=== PATIENT | female | born 1975 | race Caucasian/White ===

== ENCOUNTER 2018-08-07 16:25 | Emergency (ER) | payer BC, OTHER ==
--- NOTE | 2018-08-07 16:50 | ED ---
Psych HPI - General Stated Complaint: Suicidal thoughts Time Seen by Provider: 08/07/18 16:25 Source: patient, RN notes reviewed - History of Present Illness Initial Comments: Is a 43-year-old female with essentially benign past medical history who states she did initially depressed recently/over last several days she did ask for a LEEP day or in apparently had a go an today. She went to her doctor's office and was voicing suicidal thoughts and ideation including using a gun. He also thought about cutting her wrists. She has no prior history of suicide attempts she currently is on antidepressants. She denies any drugs or alcohol. No other medical issues she does states she's had some weight gain recently she was told she had possibly some thyroid nodules but has never pursued this she also states she had a lot of blood work done in her doctor's office recently that everything appeared to be normal. No other modifying factors she states her is multiple issues for this occurrence today. MD Complaint: suicidal ideation, feels depressed - Related Data Home Medications Medication Instructions Recorded Confirmed FLUoxetine HCL [PROzac] 40 mg PO DAILY 06/24/16 08/07/18 valACYclovir [Valtrex] 500 mg PO DAILY 06/24/16 08/07/18 Dextroamphetamine/Amphetamine 20 mg PO DAILY 08/07/18 08/07/18 [Adderall] Allergies Allergy/AdvReac Type Severity Reaction Status Date / Time morphine Allergy Severe Anaphylaxis Verified 08/07/18 17:08 clarithromycin [From Biaxin] AdvReac Intermediate Nausea & Verified 08/07/18 17: 08 Vomiting & Diarrhea Review of Systems ROS Statement: Those systems with pertinent positive or pertinent negative responses have been documented in the HPI. ROS Other: All systems not noted in ROS Statement are negative. Past Medical History Past Medical History: No Reported History History of Any Multi-Drug Resistant Organisms: None Reported Past Surgical History: No Surgical Hx Reported Past Psychological History: No Psychological Hx Reported Smoking Status: Former smoker Past Alcohol Use History: None Reported Past Drug Use History: None Reported General Exam - General Exam Comments Initial Comments: This is a well-developed well-nourished awake alert oriented 3 female General appearance: alert, in no apparent distress Head exam: Present: atraumatic, normocephalic, normal inspection Eye exam: Present: normal appearance, PERRL, EOMI. Absent: scleral icterus, conjunctival injection, periorbital swelling ENT exam: Present: normal exam, mucous membranes moist Neck exam: Present: normal inspection. Absent: tenderness, meningismus, lymphadenopathy Respiratory exam: Present: normal lung sounds bilaterally. Absent: respiratory distress, wheezes, rales, rhonchi, stridor Cardiovascular Exam: Present: regular rate, normal rhythm, normal heart sounds. Absent: systolic murmur, diastolic murmur, rubs, gallop, clicks GI/Abdominal exam: Present: soft, normal bowel sounds. Absent: distended, tenderness, guarding, rebound, rigid Extremities exam: Present: normal inspection, full ROM, normal capillary refill. Absent: tenderness, pedal edema, joint swelling, calf tenderness Back exam: Present: normal inspection Neurological exam: Present: alert, oriented X3, CN II-XII intact Psychiatric exam: Present: depressed, flat affect, suicidal ideation Skin exam: Present: warm, dry, intact, normal color. Absent: rash Course Vital Signs 08/07/18 16:49 Temperature 98.0 F Pulse Rate 106 H Respiratory 20 Rate Blood Pressure 130/76 O2 Sat by Pulse 96 Oximetry Medical Decision Making - Medical Decision Making The patient was evaluated by psychiatric service he currently is not a risk to herself or anyone else he is amenable to outpatient counseling and treatment. He currently is not suicidal or homicidal. Disposition Clinical Impression: Depression, Adjustment reaction Disposition: HOME SELF-CARE Condition: Good Instructions: Depression (ED) Additional Instructions: Follow-up as per the psychiatric service. Is patient prescribed a controlled substance at d/c from ED?: No Referrals: Onesimo Rahman MD [Primary Care Provider] - 1-2 days
[2018-08-07 16:57] VITALS: TEMP 98
[2018-08-07 19:05] VITALS: BP 130/77; PULSE 100; RESP 18
== END 2018-08-07 19:03 | disposition home or self-care (01) ==
LOC: EC 16:25
DX: F32.9 Major depressive disorder, single episode, unspecified (principal); F43.20 Adjustment disorder, unspecified; Z87.891 Personal history of nicotine dependence; Z79.899 Other long term (current) drug therapy; Z88.1 Allergy status to other antibiotic agents; Z88.5 Allergy status to narcotic agent
CPT/HCPCS: 82075; 99284

== ENCOUNTER → 2019-03-07 | Outpatient (CLI) | payer BC ==
--- NOTE | 2019-03-07 15:48 | US ---
EXAMINATION TYPE: US thyroid st tissue head/neck DATE OF EXAM: 03/07/2019 COMPARISON: NONE CLINICAL HISTORY: E04.1 Thyroid nodule. GLAND SIZE: Right Lobe: 4.8 x 3.0 x 1.1 cm Overall Parenchyma: homogenous Left Lobe: 5.1 x 1.2 x 1.2 cm Overall Parenchyma: homogeneous Isthmus Thickness: 0.1 cm NODULES RIGHT: # of nodules measured on right: 0 LEFT: # of nodules measured on left: 0 ISTHMUS: # of nodules measured in the isthmus: 0 Bilateral neck scanned, no evidence of lymphadenopathy. IMPRESSION: Prominent size of the homogeneous thyroid gland without discrete nodule.
== END | disposition home or self-care (01) ==
LOC: RADUSWWP 14:58
PROVIDERS: ATTEND Family Medicine
DX: E04.1 Nontoxic single thyroid nodule (principal)
CPT/HCPCS: 76536

== ENCOUNTER → 2019-08-20 | Outpatient (CLI) | payer BC, OTHER ==
[2019-08-20 12:02] LABS: HCT 41.8 % (34.0-46.0); HGB 14.3 gm/dL (11.4-16.0); MCH 33.9 pg (25.0-35.0); MCHC 34.2 g/dL (31.0-37.0); MCV 99.1 fL (80.0-100.0); Mean Platelet Volume 6.3; Platelet Count 374 k/uL (150-450); RBC 4.22 m/uL (3.80-5.40); RDW 12.5 % (11.5-15.5); WBC 5.7 k/uL (3.8-10.6)
[2019-08-20 18:57] LABS: Estradiol 227.6 pg/mL; Luteinizing Hormone 6.4 mIU/mL
[2019-08-20 18:59] LABS: DHEA Sulfate 109.6 ug/dL (26.0-430.0)
[2019-08-20 19:01] LABS: Insulin Level 5.4 mIU/mL (3.0-25.0)
[2019-08-20 19:02] LABS: Progesterone <0.2 ng/mL
== END | disposition home or self-care (01) ==
LOC: LABWHC1 10:46
PROVIDERS: ATTEND Surgery
DX: G47.00 Insomnia, unspecified (principal); R53.81 Other malaise
CPT/HCPCS: 36415; 82627; 82670; 83001; 83002; 83525; 84140; 84144; 84402; 84403; 84439; 84443; 84481; 85027

== ENCOUNTER → 2019-12-06 | Outpatient (CLI) | payer BC, OTHER ==
[2019-12-06 16:49] LABS: Estradiol 105.4 pg/mL
== END | disposition home or self-care (01) ==
LOC: LABWHC1 09:22
PROVIDERS: ATTEND Surgery
DX: E34.9 Endocrine disorder, unspecified (principal); R53.81 Other malaise; G47.00 Insomnia, unspecified; R61 Generalized hyperhidrosis; R68.82 Decreased libido; Z51.81 Encounter for therapeutic drug level monitoring
CPT/HCPCS: 36415; 82670; 84144; 84402; 84403